=== PATIENT | female | born 1980 | race Two or more races ===

== ENCOUNTER 2016-11-01 20:50 | Emergency (ER) | payer MEDICAID ==
[~2016-11-01] VITALS: Ht 162.6 cm; Wt 57.0 kg
[2016-11-01 20:52] VITALS: BP 142/78
== END 2016-11-01 23:10 | disposition left against medical advice (07) ==
LOC: ER 21:06
DX: F41.1 Generalized anxiety disorder (principal); R20.2 Paresthesia of skin; Z53.21 Procedure and treatment not carried out due to patient leaving prior to being seen by health care provider